=== PATIENT | female | born 1955 ===

== ENCOUNTER → 2019-01-15 | Outpatient (CLI) | payer MEDICAID ==
--- NOTE | 2019-01-15 14:22 | Diagnostic Imaging Report ---
Indication: Right lower quadrant pain. Sonographic interrogation of the right lower quadrant was performed. Study is limited by patient body habitus and overlying bowel gas. Appendix was not visualized. No fluid collections are seen. Impression: Limited study. The appendix was not visualized. If there is concern for acute appendicitis, CT could be performed. Dictated by: Dictated on workstation # [id number]
== END ==
LOC: RAD 11:54
PROVIDERS: ATTEND Nurse Practitioner Community Health
DX: R10.31 Right lower quadrant pain (principal)
CPT/HCPCS: 76705

== ENCOUNTER 2023-01-23 05:55 | Outpatient (CLI) | payer MEDICAID ==
[~2023-01-23] VITALS: Ht 157.5 cm; Wt 92.2 kg
[2023-01-23] MEDS ORDERED: ESCI20TA39 PO (10:00)
[2023-01-23] MEDS ORDERED: CALC600T91 PO (10:00)
[2023-01-23] MEDS ORDERED: MTP100TCR PO (10:00)
[2023-01-23] MEDS ORDERED: HYDR-700 PO (10:00)
[2023-01-23] MEDS ORDERED: CHLO25TA22 PO (10:00)
[2023-01-23] MEDS ORDERED: LISI40TA9 PO (10:00)
[2023-01-23] MEDS ORDERED: MULT-593 PO (10:00)
[2023-01-23] MEDS ORDERED: OMEG100032 PO (10:00)
[2023-01-23] MEDS ORDERED: AMLO-251 PO (10:00)
== END 2023-01-23 10:03 | disposition home or self-care (01) ==
LOC: PREOP 05:55
PROVIDERS: ATTEND Surgery
DX: Z01.818 Encounter for other preprocedural examination (principal)

== ENCOUNTER 2023-01-30 12:14 | Day surgery (SDC) | payer MEDICAID ==
[~2023-01-30 12:14] MED LIST: AMLO-251 PO; CALC600T91 PO; CHLO25TA22 PO; ESCI20TA39 PO; HYDR-700 PO; LISI40TA9 PO; MTP100TCR PO; MULT-593 PO; OMEG100032 PO
[2023-01-30] MEDS ORDERED: LACTATED RINGERS 1,000 ML IV STA (12:56)
[2023-01-30] MEDS ORDERED: LIDOCAINE JELLY 2% 6 ML SYRINGE MM PRN (13:00)
--- NOTE | 2023-01-30 13:10 | Progress Note-Pre Operative ---
Pre-Operative Progress Note Date of Available H&P: Jan 30, 2023 Date H&P Reviewed: Jan 30, 2023 Time H&P Reviewed: 13:00 Pre-Operative Diagnosis: screening, cologuard + YAEL ASHLEY MD Jan 30, 2023 13:10
--- NOTE | 2023-01-30 13:12 | Discharge Inst-Surgical ---
D/C Lap Instructions-GABI Follow Up Activity as tolerated High Fiber Diet 25g or more per day Avoid Alcohol, Caffeine, Spicy [place] and Acid foods. Drink 64 fluid oz or more of fluids per day. Symptoms to Report: Fever over 101 degree F, Nausea/Vomiting If any problems/questions: Contact your physician or go to Emergency Room YAEL ASHLEY MD Jan 30, 2023 13:12
[2023-01-30] MEDS ORDERED: ONDANSETRON 4 MG/2 ML (SDV) Z0FRAN IVP PRN (13:15)
[2023-01-30] MEDS ORDERED: ONDANSETRON 4 MG (ZOFRAN) ORAL DISSOLVE TAB PO PRN (13:15)
[2023-01-30 13:42] VITALS: BP 89/52
[2023-01-30] MEDS ORDERED: LIDOCAINE JELLY 2% 6 ML SYRINGE ONE (14:06)
[2023-01-30] MEDS ORDERED: PROPOFOL INJECTION 50 ML IV ONE (14:36)
[2023-01-30] MEDS ORDERED: MIDAZOLAM 2 MG/2 ML (VERSED) VIAL ONE (14:36)
[2023-01-30] MEDS ORDERED: ATROPINE INJ 0.4 MG/ML SDV ONE (14:59)
[2023-01-30 15:10] VITALS: BP 109/66
[2023-01-30 15:15] VITALS: BP 86/50
[2023-01-30 15:43] VITALS: BP 86/50
--- NOTE | 2023-01-31 22:39 | OPERATIVE REPORT ---
DATE OF SERVICE: 01/30/2023 ATTENDING PRIMARY ELECTRICIAN POWERHOUSE: Rosendo Boyer APRN PREOPERATIVE DIAGNOSIS: Screening colonoscopy. POSTOPERATIVE DIAGNOSES: Chronic stage II external and internal hemorrhoids. SURGEON: Yael Madrigal MD ANESTHESIA: Monitored anesthesia care. ESTIMATED BLOOD LOSS: Minimal. FINDINGS: Mild chronic stage II, external and internal diagnosis. DISPOSITION: The patient tolerated the procedure well. INDICATIONS: The patient is a 67-year-old female referred over to us for screening colonoscopy. She has not had a colonoscopy up to this point in her life. She does not report any major issues with diarrhea, nor constipation as well as no red blood per rectum, nor any dark tarry stools. She also does not report any family history of colon cancer. She did have a Cologuard test, which was found to be positive however. DESCRIPTION OF PROCEDURE: The patient was brought to the endoscopy suite and laid in the left lateral decubitus position. After adequate IV pain and sedative medications and monitored anesthesia care, a digital rectal examination was performed. Chronic stage II external and internal hemorrhoids were identified, which were not actively edematous nor inflamed and no bleeding. Normal sphincter tone was felt and there were no palpable masses. The endoscope was then intubated into the anus, rectum gently insufflated. The endoscope was then advanced through the valves of Kang of the rectum with no polyps or any neoplasms identified. The endoscope was then advanced through the sigmoid colon where no diverticulosis identified. The endoscope was then advanced through the remainder of the descending, transverse and ascending colon to the cecum, which were normal. There were no polyps or any neoplasms identified throughout the colon or rectum. The endoscope was then slowly withdrawn while taking a second look and suctioning of residual air with no additional findings. The patient tolerated the procedure well. We will recommend normal medical management with a recommendation of a high-fiber diet with addition of a fiber supplement, which should equal or exceed 25 grams daily as well as significant amounts of water to promote soft consistency stools on a daily basis and if she is asymptomatic, she does not need another colonoscopy for another 10 years. Job ID: [id number] DocumentID: [id number] Dictated Date: 01/31/2023 16:24:26 [employer] Date: 01/31/2023 22:37:00 Dictated By: YAEL MADRIGAL MD [facility]
== END 2023-01-30 15:55 | disposition home or self-care (01) ==
LOC: ENDO 12:14
PROVIDERS: ATTEND Surgery
DX: Z12.11 Encounter for screening for malignant neoplasm of colon (principal); K64.4 Residual hemorrhoidal skin tags; E66.9 Obesity, unspecified; Z68.37 Body mass index [BMI] 37.0-37.9, adult; K64.1 Second degree hemorrhoids